=== PATIENT | male | born 1975 | race Two or more races ===

== ENCOUNTER 2020-01-13 09:28 | Outpatient (CLI) | payer OTHER | END 2020-01-13 09:37 | disposition home or self-care (01) | LOC: SONOGRAMA 09:28 | PROVIDERS: ATTEND Pathology Anatomic Pathology & Clinical Pathology | DX: E04.1 Nontoxic single thyroid nodule (principal) ==

== ENCOUNTER 2021-02-12 13:33 | Outpatient (CLI) | payer OTHER | END 2021-02-12 13:40 | disposition home or self-care (01) | LOC: LAB 13:33 | DX: Z11.52 Encounter for screening for COVID-19 (principal); Z20.822 Contact with and (suspected) exposure to COVID-19; Z20.828 Contact with and (suspected) exposure to other viral communicable diseases ==

== ENCOUNTER 2024-07-14 12:15 | Inpatient (IN) | payer OTHER ==
[~2024-07-14] VITALS: Ht 172.7 cm; Wt 104.3 kg
[2024-07-14] MEDS ORDERED: OMEPRAZOLE20 MG PO (12:56)
[2024-07-14] MEDS ORDERED: LOSARTAN POTASS50 MG PO (12:56)
[2024-07-22] MEDS ORDERED: CEFTRIAXONE SODIUM 2,000 MG VIAL ONE ×2 (07:55→08:40)
[2024-07-22] MEDS ORDERED: METRONIDAZOLE/SODIUM CHLORIDE 500 MG/100 ML PIGGYBACK IV ONE ×2 (07:56→09:15)
[2024-07-22] MEDS ORDERED: CEFTRIAXONE SODIUM 2,000 MG VIAL IV ONE (09:15)
[2024-07-22] MEDS ORDERED: BUPIVACAINE HCL 30 ML VIAL IJ ONE (09:15)
[2024-07-22] MEDS ORDERED: LIDOCAINE HCL 1%/EPINEPHRINE 20ML VIAL IJ ONE (09:15)
[2024-07-22] MEDS ORDERED: MORPHINE SULFATE 4 MG/ML CARTRIDGE IV PRN (11:45)
[2024-07-22] MEDS ORDERED: 0.9 % SODIUM CHLORIDE 1,000 ML IV SCH (11:45)
[2024-07-22] MEDS ORDERED: ONDANSETRON HCL 2 MG/ML VIAL IV PRN (11:45)
[2024-07-22] MEDS ORDERED: DEXTROSE 50 % IN WATER 0.5 G/ML VIAL IV PRN (11:45)
[2024-07-22] MEDS ORDERED: OxyCODONE HCL 5 MG TABLET (ROXICODONE) PO PRN (11:45)
[2024-07-22] MEDS ORDERED: SUGAMMADEX SODIUM 200 MG/2 ML VIAL IV ONE (12:06)
[2024-07-22] MEDS ORDERED: ENALAPRILAT DIHYDRATE 1.25 MG/ML VIAL IV PRN (12:45)
[2024-07-22] MEDS ORDERED: MORPHINE SULFATE 4 MG/ML VIAL IV ONE ×2 (12:45→13:15)
[2024-07-22] MEDS ORDERED: ACETAMINOPHEN 500 MG GEL..CAP PO SCH (14:00)
[2024-07-22 15:22] LABS: BASO % 0.3 % (0.1-1.2); EOS # 0.01 (0.04-0.54); EOS % 0.1 % (0.7-7.0); HEMOGLOBIN 14.4 g/dL (13.7-17.5); LYMPH # 0.91 (1.18-3.74); LYMPH % 5.5 % (19.3-53.1); MEAN CORPUSCULAR HEMOGLOBIN 29.4 pg (25.6-32.2); MONO % 5.5 % (4.7-12.5); NEUT # 14.55 (1.56-6.13); NEUT % 88.1 % (34.0-71.1); PLATELET COUNT 314 K/uL (163-369); RED CELL DISTRIBUTION WIDTH 13.4 % (11.6-14.4)
[2024-07-22 15:58] LABS: ALBUMIN 3.6 gm/dL (3.4-5.0); CALCIUM 8.9 mg/dL (8.5-10.1); CREATININE SERUM 1.05 mg/dL (0.70-1.30); GFR 75.39; MAGNESIUM 1.9 mg/dL (1.8-2.4); PHOSPHOROUS 3.1 mg/dL (2.5-4.9); POTASSIUM 4.49 mEq/L (3.5-5.1)
[2024-07-22 16:00] VITALS: BP 160/93; O2SAT 96
[2024-07-22] MEDS ORDERED: POLYETHYLENE GLYCOL 3350 17 GM BLIST.PACK PO SCH (17:00)
[2024-07-22] MEDS ORDERED: GABAPENTIN 300 MG CAPSULE PO SCH (17:00)
[2024-07-22] MEDS ORDERED: METRONIDAZOLE/SODIUM CHLORIDE 500 MG/100 ML PIGGYBACK IV SCH (17:00)
[2024-07-22] MEDS ORDERED: HYOSCYAMINE SULFATE 0.125 MG TAB.SUBL SL SCH (17:00)
[2024-07-22] MEDS ORDERED: FAMOTIDINE/PF 20 MG/2 ML VIAL IV PUSH SCH (21:00)
[2024-07-22] MEDS ORDERED: CELECOXIB 200 MG CAPSULE PO SCH (21:00)
[2024-07-23 00:30] VITALS: BP 161/84; O2SAT 94
[2024-07-23 08:00] VITALS: BP 163/88; O2SAT 95
[2024-07-23] MEDS ORDERED: LOSARTAN POTASSIUM 50 MG TABLET PO SCH (09:00)
[2024-07-23 09:51] LABS: BASO % 0.4 % (0.1-1.2); EOS # 0.03 (0.04-0.54); EOS % 0.2 % (0.7-7.0); HEMATOCRIT 42.1 % (40.1-51.0); HEMOGLOBIN 14.2 g/dL (13.7-17.5); LYMPH # 1.34 (1.18-3.74); LYMPH % 9.2 % (19.3-53.1); MEAN CORPUSCULAR HEMOGLOBIN 29.3 pg (25.6-32.2); MONO # 1.24 (0.24-0.82); MONO % 8.5 % (4.7-12.5); NEUT # 11.82 (1.56-6.13); NEUT % 81.2 % (34.0-71.1); PLATELET COUNT 332 K/uL (163-369); RED BLOOD COUNT 4.84 M/uL (4.63-6.08); RED CELL DISTRIBUTION WIDTH 13.3 % (11.6-14.4)
[2024-07-23 10:39] LABS: ALBUMIN 3.3 gm/dL (3.4-5.0); CALCIUM 8.7 mg/dL (8.5-10.1); CREATININE SERUM 0.88 mg/dL (0.70-1.30); GFR 92.43; PHOSPHOROUS 2.4 mg/dL (2.5-4.9); POTASSIUM 4.09 mEq/L (3.5-5.1)
[2024-07-23] MEDS ORDERED: POTASSIUM PHOS,M-BASIC-D-BASIC 3 MM/ML VIAL IV NR (15:15)
[2024-07-23 16:00] VITALS: BP 125/83; O2SAT 95
[2024-07-23] MEDS ORDERED: ENOXAPARIN SODIUM 40 MG/0.4 ML SYRINGE SUBCUTANEO SCH (17:00)
[2024-07-23] MEDS ORDERED: PIPERACILLIN/TAZOBACTAM SODIUM 3.375 GM in DEXTROSE 5 % IN WATER 100 ML IV SCH (18:12)
[2024-07-23 21:28] LABS: PH,URINE 6.5 (5.0-8.0); URINE APPEARANCE Clear; URINE BILIRRUBIN Negative (NEGATIVE); URINE BLOOD Negative; URINE COLOR Yellow; URINE GLUCOSE Negative (NEGATIVE); URINE KETONE Negative (NEGATIVE); URINE LEUKOCYTE Trace; URINE NITRATE Negative; URINE PROTEIN Negative (NEGATIVE); URINE UROBILINOGEN 0.2 E.U./dl
[2024-07-23 21:30] LABS: URINE BACTERIA 13.4 uL (0.0-1933); URINE EPITHELIAL CELLS 6.1 uL (0.0-38.8); URINE RBC 9.1 uL (0.0-20.8); URINE WBC 26.2 uL (0.0-23.2)
[2024-07-23 21:44] LABS: URINE CAST 0.29 uL (0.0-1.40)
[2024-07-24 00:48] VITALS: BP 135/88; O2SAT 95
[2024-07-24 08:00] VITALS: BP 133/79; O2SAT 98
[2024-07-24 08:35] LABS: BASO % 0.7 % (0.1-1.2); EOS # 0.44 (0.04-0.54); EOS % 3.6 % (0.7-7.0); HEMATOCRIT 39.4 % (40.1-51.0); HEMOGLOBIN 13.1 g/dL (13.7-17.5); LYMPH # 1.54 (1.18-3.74); LYMPH % 12.7 % (19.3-53.1); MONO # 1.19 (0.24-0.82); MONO % 9.8 % (4.7-12.5); NEUT # 8.78 (1.56-6.13); NEUT % 72.7 % (34.0-71.1); PLATELET COUNT 296 K/uL (163-369); RED BLOOD COUNT 4.51 M/uL (4.63-6.08); RED CELL DISTRIBUTION WIDTH 13.8 % (11.6-14.4)
[2024-07-24] MEDS ORDERED: ENOXAPARIN SODIUM 40 MG/0.4 ML SYRINGE SUBCUTANEO SCH (09:00)
[2024-07-24 09:30] LABS: CALCIUM 8.2 mg/dL (8.5-10.1); CREATININE SERUM 0.93 mg/dL (0.70-1.30); GFR 86.72; POTASSIUM 4.35 mEq/L (3.5-5.1)
[2024-07-24 09:33] LABS: PHOSPHOROUS 2.1 mg/dL (2.5-4.9)
[2024-07-24] MEDS ORDERED: POTASSIUM PHOS,M-BASIC-D-BASIC 3 MM/ML VIAL IV ONE (11:00)
[2024-07-24 16:00] VITALS: BP 150/87; O2SAT 95
[2024-07-25 01:04] VITALS: BP 157/85; O2SAT 99
[2024-07-25 08:50] VITALS: BP 159/99; O2SAT 99
[2024-07-25 09:48] VITALS: BP 158/99; O2SAT 99
[2024-07-25 16:00] VITALS: BP 143/80; O2SAT 98
== END 2024-07-25 21:30 | disposition home or self-care (01) | DRG 331 ==
LOC: O/R 07-22 08:07 → SURH 07-22 12:45
PROVIDERS: Internal Medicine Geriatric Medicine; Internal Medicine Infectious Disease; ADMIT Surgery; ATTEND Surgery
PROC: 0DTN4ZZ Resection of Sigmoid Colon, Percutaneous Endoscopic Approach (ICD-10-PCS; 2024-07-22)
PROC: 0DJD8ZZ Inspection of Lower Intestinal Tract, Via Natural or Artificial Opening Endoscopic (ICD-10-PCS; 2024-07-22)
PROC: 0DBP4ZZ Excision of Rectum, Percutaneous Endoscopic Approach (ICD-10-PCS; principal; 2024-07-22 14:30)
DX: K57.20 Diverticulitis of large intestine with perforation and abscess without bleeding (principal); R10.32 Left lower quadrant pain; I10 Essential (primary) hypertension